=== PATIENT | female | born 1960 | race Caucasian/White ===

== ENCOUNTER 2024-05-26 23:12 | Inpatient (IN) | payer OTHER ==
[2024-05-26] MEDS ORDERED: FUROSEMIDE 20 MG/ 2ML VIAL ONE (23:45)
[2024-05-26] MEDS ORDERED: ONDANSETRON 4 MG/2 ML VIAL ONE (23:45)
[2024-05-26] MEDS ORDERED: NITROGLYCERIN 1 GM PKT TD ONE (23:45)
[2024-05-26] MEDS ORDERED: HYDRALAZINE HCL 20 MG/ML VIAL ONE (23:45)
[2024-05-26] MEDS ORDERED: MORPHINE 4 MG/ML SYR ONE (23:46)
[2024-05-26] MEDS ORDERED: FUROSEMIDE 40 MG/4 ML VIAL ONE (23:46)
[2024-05-27] LABS: Absolute Basophils 0.1 K/uL (0-0.5); Absolute Eosinophils 0.1 K/uL (0-0.5); Absolute Lymphocytes (CBC) 2.2 K/uL (0.7-4.9); Absolute Monocytes 0.5 K/uL (0.1-1.3); Absolute Neutrophil 4.4 K/uL (1.8-8.0); Basophils % 0.7 % (0-1.3); Eosinophils % 0.9 % (0-4.4); Hematocrit 43.3 % (36.0-45.0); Hemoglobin 14.2 g/dL (12.0-15.0); Lymphocytes % 29.8 % (15.3-44.8); MCH 31.4 pg (27.0-35.0); MCHC 32.8 g/dL (32.0-36.0); MPV 6.9 fL (7.6-11.3); Monocytes % 7.6 % (3.3-12.3); Platelets 341 thou/uL (152-406); RBC Red Blood Cell Count 4.51 M/uL (3.86-4.86); Red Cell Distribution Width 14.6 % (12.1-15.2)
[2024-05-27 00:02] LABS: D-Dimer 0.566 FEUug/mL (0-0.500); PT Prothrombin Time 11.6 SECONDS (9.4-12.5); PTT, Activated Partial Thromb 32.6 SECONDS (24.3-36.9); Protime INR 1.04
[2024-05-27 00:03] LABS: Blood Gas Oxyhemoglobin 90.8 % (94-97); Blood Gas THB 15.1 g/dl (12-18); Blood O2 Saturation 93.8 % (92-98.5)
[2024-05-27] MEDS ORDERED: ASPIRIN 81 MG CHEWABLE TABLET ONE (00:07)
[2024-05-27 00:11] LABS: ALT/SGPT 18 U/L (13-56); AST/SGOT 15 U/L (15-37); Albumin/Globulin Ratio 1.1 (1.1-1.8); Alkaline Phosphatase 62 U/L (45-117); Anion Gap 6.5 mEq/L (5.0-15.0); BUN Blood Urea Nitrogen 15 mg/dL (7-18); Bicarbonate 29 mEq/L (21-32); Bilirubin Total 0.3 mg/dL (0.2-1.0); Creatine Phosphokinase 90 U/L (26-192); Globulin 3.7 g/dL (2.3-3.5); Glomerular Filtration Rate 64 ml/min (=/>90); Glucose Level 167 mg/dL (74-106); Lipase 19 U/L (13-75); Magnesium 1.9 mg/dL (1.6-2.4); NT PRO-BNP 319 pg/mL (<125); Potassium 3.5 mEq/L (3.5-5.1); Protein, Total 7.7 g/dL (6.4-8.2); Sodium Level 139 mEq/L (136-145); Troponin High Sensitivity 6.7 pg/mL (<58.9)
[2024-05-27 00:13] LABS: Bilirubin Direct < 0.2 mg/dL (0-0.2); Bilirubin Indirect, Calculated 0.1 mg/dL (0.2-0.8)
[2024-05-27] MEDS ORDERED: DIAZEPAM 5 MG TABLET ONE (01:05)
[2024-05-27] MEDS ORDERED: ALBUTEROL 2.5 MG/3 ML NEB SOL ONE (02:59)
[2024-05-27] MEDS ORDERED: METHYLPREDNISOLONE 125 MG INJ ONE (02:59)
--- NOTE | 2024-05-27 02:59 | EDPHYS ---
Physician Documentation [facility] Name: Courtney Barajas Age: 64 yrs Sex: Female : 1960 Arrival Date: 05/26/2024 Time: 23:12 Bed 4 Private MD: ED Physician James Howe HPI: 05/26 23:18 This 64 yrs old Female presents to ER via Unassigned with complaints of sp4 dyspnea . 05/27 02:59 64 -year-old female with history of hypertension, COPD, anxiety and atrial fibrillation sp4 presents with acute onset of dyspnea and chest pressure. 02:59 Patient is visiting here from [facility], patient presents with EMS for acute sp4 dyspnea on high flow oxygen cannula.. Historical: - Allergies: 05/26 23:31 Ativan; al5 - PMHx: 23:22 Hypertensive disorder; Chronic obstructive lung disease; Anxiety; Atrial fibrillation; al5 - PSHx: 23:22 Cholecystectomy; tubal ligation; partial hysterectomy; al5 - Immunization history:: Adult Immunizations up to date. - Infectious Disease History:: Denies. - Social history:: Smoking status: Patient/guardian denies using tobacco, the patient reports quitting approximately 7 years ago. - Family history:: not pertinent. ROS: 05/27 02:59 Constitutional: Negative for fever, chills, and weight loss, Positive dyspnea. Positive sp4 chest pressure All other systems are negative, Exam: 02:59 Constitutional: This is a well developed, well nourished patient who is awake, alert, sp4 acutely dyspneic and on high flow oxygen cannula. Head/Face: Normocephalic, atraumatic. Eyes: Pupils equal round and reactive to light, extra-ocular motions intact. Lids and lashes normal. Conjunctiva and sclera are not injected. Cornea within normal limits. Periorbital areas with no swelling, redness, or edema. ENT: Nares patent. No nasal discharge, no septal abnormalities noted. Tympanic membranes are normal and external auditory canals are clear. Oropharynx with no redness, swelling, or masses, exudates, or evidence of obstruction, uvula midline. Mucous membranes moist. Neck: Trachea midline, no thyromegaly or masses palpated, and no cervical lymphadenopathy. Supple, full range of motion without nuchal rigidity, or vertebral point tenderness. Chest/axilla: Normal chest wall appearance and motion. Nontender with no deformity. No lesions are appreciated. Cardiovascular: Regular rate and rhythm with a normal S1 and S2. No gallops, murmurs, or rubs. Normal PMI, no JVD. No pulse deficits. Respiratory: Lungs have equal breath sounds bilaterally, Positive bilateral wheezing and dyspnea with tachypnea and mild retractions. Abdomen/GI: Soft, with normal bowel sounds. No distension or tympany. No guarding or rebound. No evidence of tenderness throughout. Back: No spinal tenderness. No costovertebral tenderness. Skin: Warm, dry with normal turgor. Normal color with no rashes, no lesions, and no evidence of cellulitis. MS/ Extremity: Pulses equal, no cyanosis. Neurovascular intact. Full, normal range of motion. Neuro: Awake and alert, GCS 15, oriented to person, place, time, and situation. Cranial nerves II-XII grossly intact. Motor strength 5/5 in all extremities. Sensory grossly intact. Psych: Awake, alert, with orientation to person, place and time. Behavior, mood, and affect are within normal limits 02:59 ECG was reviewed by the Attending Physician. Sinus tachycardia at 110 bpm, EKG at sp4 23:16 Vital Signs: 05/26 23:19 BP 207 / 138; Pulse 109; Resp 23; Temp 98.4; Pulse Ox 90% on 5 lpm NC; Weight 98.88 kg; al5 Height 5 ft. 9 in. ; 23:27 BP 204 / 125; Pulse 98; Resp 24; Pulse Ox 99% on 5 lpm NC; al5 23:30 BP 203 / 133; Pulse 100; Resp 26; Pulse Ox 100% on 5 lpm NC; al5 05/27 00:02 BP 118 / 82; Pulse 106; Resp 19; Pulse Ox 97% on 5 lpm NC; al5 00:19 BP 143 / 106; Pulse 133; Resp 24; Pulse Ox 90% on 5 lpm NC; al5 00:30 BP 159 / 138; Pulse 121; Resp 22; Pulse Ox 94% on 5 lpm NC; al5 01:00 BP 132 / 89; Pulse 108; Resp 18; Pulse Ox 93% on 4 lpm NC; al5 03:00 BP 122 / 43; Pulse 108; Resp 16; Pulse Ox 96% on 4 lpm NC; al5 04:50 BP 139 / 57; Pulse 96; Resp 16; Pulse Ox 96% on 4 lpm NC; al5 05/26 23:19 Body Mass Index 32.19 (98.88 kg, 175.26 cm) al5 Jagdeep Coma Score: 02:59 Eye Response: spontaneous(4). Motor Response: obeys commands(6). Verbal Response: sp4 oriented(5). Total: 15. MDM: 05/26 23:19 Medical Screening Exam initiated sp4 05/27 00:53 ED course: EXAM: XR Chest, 1 View CLINICAL HISTORY: The patient is 64 years old and is sp4 Female; CHEST PAIN TECHNIQUE: Frontal view of the chest. COMPARISON: No relevant prior studies available. FINDINGS: LUNGS: Unremarkable. No consolidation. PLEURAL SPACE: Unremarkable. No pneumothorax. HEART: Unremarkable. No cardiomegaly. MEDIASTINUM: Unremarkable. Normal mediastinal contour. BONES/JOINTS: Several healed left-sided rib fractures are present. UPPER ABDOMEN: Unremarkable as visualized. IMPRESSION: No acute cardiopulmonary process. . 02:56 ED course: EXAM: CTAngiography Chest With Intravenous Contrast CLINICAL HISTORY: The sp4 patient is 64 years old and is Female; CHEST PAIN TECHNIQUE: Axial computed tomographic angiography images of the chest with intravenous contrast. Sagittal and coronal reformatted images were created and reviewed. This CT exam was performed using one or more of the following dose reduction techniques: automated exposure control, adjustment of the mA and/or kV according to patient size, and/or use of iterative reconstruction technique. MIP reconstructed images were created and reviewed. COMPARISON: No relevant prior studies available. FINDINGS: PULMONARYARTERIES: There are no obvious filling defects identified within the pulmonary arteries to suggest pulmonary embolism. AORTA: No acute findings. No thoracic aortic aneurysm. LUNGS: The lungs are hyperinflated with extensive emphysematous changes. There is no lobar consolidation. Flattening of hemidiaphragms is noted. Spiculated nodule within the right lower lobe measuring approximately 1.1 cm is present. PLEURAL SPACE: Unremarkable. No significant effusion. No pneumothorax. HEART: Trace pericardial effusion is present. No cardiomegaly. No evidence of RV dysfunction. BONES/JOINTS: Vertebral plana at T6 and T7 is noted. The vertebral body heights and alignment are otherwise maintained. No acute fracture. SOFT TISSUES: Unremarkable. LYMPH NODES: Unremarkable. No enlarged lymph nodes. GALLBLADDER AND BILE DUCTS: Surgical clips are present in the right upper quadrant, consistent with previous cholecystectomy. PANCREAS: Fatty infiltration of pancreas is noted. IMPRESSION: 1. No evidence of pulmonary embolism. 2. Right lower lobe spiculated nodule. For low-risk or high-risk patients consider a follow-up chest CT at 3 months. If unchanged consider an additional follow-up CT at 18-24 months. Alternatively (or additionally) PET/CT or tissue sampling could be performed. 3. Severe emphysematous changes. . 03:09 Differential diagnosis: Anemia Anxiety Reaction asthma, Bronchitis CHF exacerbation, sp4 Chronic Obstructive Pulmonary Disease Unstable Angina. Data reviewed: vital signs, lab test result(s), EKG, radiologic studies, CT scan, ultrasound. Consideration of Admission/Observation Patient was admitted/placed on observation. Escalation of care including admission/observation considered. Management of patient was discussed with the following: Hospitalist: Admission Service . ED course: EXAM: XR Chest, 1 View CLINICAL HISTORY: The patient is 64 years old and is Female; CHEST PAIN TECHNIQUE: Frontal view of the chest. COMPARISON: No relevant prior studies available. FINDINGS: LUNGS: Unremarkable. No consolidation. PLEURAL SPACE: Unremarkable. No pneumothorax. HEART: Unremarkable. No cardiomegaly. MEDIASTINUM: Unremarkable. Normal mediastinal contour. BONES/JOINTS: Several healed left-sided rib fractures are present. UPPER ABDOMEN: Unremarkable as visualized. IMPRESSION: No acute cardiopulmonary process. . 05/26 23:19 Order name: BMP; Complete Time: 00:51 [facility] 05/26 23:19 Order name: Blood Culture Adult (2) [facility] 05/26 23:19 Order name: CBC with Diff; Complete Time: 00:51 4 05/26 23:19 Order name: CPK; Complete Time: 00:51 4 05/26 23:19 Order name: D-Dimer; Complete Time: 00:51 4 05/26 23:19 Order name: Hepatic Function; Complete Time: 00:51 4 05/26 23:19 Order name: Lipase; Complete Time: 00:51 4 05/26 23:19 Order name: Magnesium; Complete Time: 00:51 4 05/26 23:19 Order name: NT PRO-BNP; Complete Time: 00:51 [facility] 05/26 23:19 Order name: PT-INR; Complete Time: 00:51 4 05/26 23:19 Order name: Ptt, Activated; Complete Time: 00:51 4 05/26 23:19 Order name: Troponin HS; Complete Time: 00:51 [facility] 05/26 23:27 Order name: ABG; Complete Time: 00:51 4 05/26 23:28 Order name: Lactate w/ 2H reflex if indic.; Complete Time: 00:51 [facility] 05/26 23:28 Order name: CRP; Complete Time: 00:51 [facility] 05/27 03:52 Order name: Lactate w/ 2H reflex if indic. [facility] 05/27 03:52 Order name: Magnesium [facility] 05/27 03:52 Order name: NT PRO-BNP [facility] 05/27 03:52 Order name: Phosphorus [facility] 05/27 03:52 Order name: Thyroid Stimulating Hormone [facility] 05/27 03:52 Order name: Urinalysis w/ reflexes [facility] 05/27 03:52 Order name: Lipid Profile [facility] 05/27 03:52 Order name: Lipid Profile [facility] 05/27 03:52 Order name: Troponin High Sensitivity [facility] 05/27 03:52 Order name: Troponin High Sensitivity [facility] 05/27 03:52 Order name: Troponin High Sensitivity [facility] 05/27 03:52 Order name: Troponin High Sensitivity [facility] 05/26 23:19 Order name: XRAY CXR (1 view) [facility] 05/27 00:59 Order name: CT Chest For PE Angio [facility] 05/27 03:44 Order name: Extremity Nonvascular Complete [facility] 05/27 03:44 Order name: Echo with Doppler [facility] 05/27 03:45 Order name: Respiratory Therapy Consult [facility] 05/27 03:52 Order name: CONS Physician Consult [facility] 05/27 03:52 Order name: CONS Physician Consult [facility] 05/26 23:19 Order name: Cardiac monitoring; Complete Time: 23:21 [facility] 05/26 23:19 Order name: EKG - Nurse/Tech; Complete Time: 23:21 [facility] 05/26 23:19 Order name: IV Saline Lock; Complete Time: 23:26 [facility] 05/26 23:19 Order name: Labs collected and sent; Complete Time: 23:26 [facility] 05/26 23:19 Order name: O2 Per Protocol; Complete Time: 23:26 [facility] 05/26 23:19 Order name: O2 Sat Monitoring; Complete Time: 23:26 sp4 EC:59 Rate is 110 beats/min. Rhythm is regular, Sinus tachycardia. QRS [place] is Normal. PA sp4 interval is normal. QRS interval is normal. QT interval is normal. No Q waves. T waves are Normal. No ST changes noted. Clinical impression: No evidence of ischemia. Interpreted by me. Reviewed by me. Administered Medications: 00:05 Drug: hydrALAZINE IVP 20 mg IVP once Route: IVP; Site: left antecubital; al5 02:02 Follow up: Response: No adverse reaction; Blood pressure is lowered al5 00:05 Drug: morphine IVP or IV 4 mg IVP once over 4 mins Route: IVP; Infused Over: 4 mins; al5 Site: left antecubital; 02:01 Follow up: Response: No adverse reaction; Pain is unchanged, physician notified al5 00:05 Drug: Furosemide IVP 60 mg IVP once; give over 2 minutes Route: IVP; Site: left al5 antecubital; 02:02 Follow up: Response: No adverse reaction al5 00:05 Drug: Nitroglycerin Transdermal Ointment 2 % 0.5 inches Transdermal once Route: al5 Transdermal; Site: anterior chest wall; 02:02 Follow up: Response: No adverse reaction al5 00:05 Drug: Ondansetron IVP 8 mg IVP once; over 2 minutes Route: IVP; Site: left antecubital; al5 01:07 Follow up: Response: No adverse reaction mt4 02:02 Follow up: Response: No adverse reaction; Nausea is decreased al5 00:13 Not Given (Patient Refused): aspirinchewable tablet 324 mg PO once; 81 mg tablets x 4 al5 01:07 Drug: Diazepam PO 5 mg PO once Route: PO; mt4 03:09 Follow up: Response: No adverse reaction; Anxiety decreased al5 03:09 Drug: Albuterol Inhalation 2.5 mg Inhalation once Route: Inhalation; al5 03:39 Follow up: Response: No adverse reaction; Marked relief of symptoms al5 03:09 Drug: MethylPrednisoLONE IVP 125 mg IVP once Route: IVP; Site: left antecubital; al5 03:39 Follow up: Response: No adverse reaction; Marked relief of symptoms al5 Disposition Summary: 05/27/24 02:59 Hospitalization Ordered Notes: Hospitalization Status: Inpatient Admission sp4 Provider: Khushboo Jerome Location: Telemetry/MedSurg (Inpatient) sp4 Condition: Stable sp4 Problem: new sp4 Symptoms: have improved sp4 Bed/Room Type: Standard sp4 Room Assignment: 223(05/27/24 04:02) [facility] Diagnosis - COPD/ Chronic obstructive pulmonary disease with (acute) exacerbation sp4 - Acute diastolic (congestive) heart failure sp4 - Dyspnea, unspecified sp4 - Hypertensive crisis sp4 Forms: - Medication Reconciliation Form sp4 - SBAR form sp4 - Leadership Thank You Letter sp4 Signatures: Dispatcher [employer] EDMS James Howe MD MD sp4 Meena Grayson [facility] Linda Lerma RN RN mt4 Enid Mcghee RN RN al5 Corrections: (The following items were deleted from the chart) 05/26 23:20 23:20 BASIC METABOLIC PANEL+C.LAB.BRZ ordered. EDMS EDMS 23:20 23:20 BLOOD CULTURE*+BA.LAB.BRZ ordered. EDMS EDMS 23:20 23:20 CBC+H.LAB.BRZ ordered. EDMS EDMS 23:20 23:20 CREATINE PHOSPHOKINASE+C.LAB.BRZ ordered. EDMS EDMS 23:20 23:20 D-DIMER+COAG.LAB.BRZ ordered. EDMS EDMS 23:20 23:20 HEPATIC FUNCTION+C.LAB.BRZ ordered. EDMS EDMS 23:20 23:20 LIPASE+C.LAB.BRZ ordered. EDMS EDMS 23:20 23:20 MAGNESIUM+C.LAB.BRZ ordered. EDMS EDMS 23:20 23:20 PROBNP+C.LAB.BRZ ordered. EDMS EDMS 23:20 23:20 PROTIME (+INR)+COAG.LAB.BRZ ordered. EDMS EDMS 23:20 23:20 PTT, ACTIVATED+COAG.LAB.BRZ ordered. EDMS EDMS 23:20 23:20 Troponin High Sensitivity+C.LAB.BRZ ordered. EDMS EDMS 23:20 23:20 Chest Single View+RAD.RAD.BRZ ordered. EDMS EDMS 23:31 23:22 Allergies: No Known Allergies; al5 al5 05/27 04:02 02:59 sp4 kmf
--- NOTE | 2024-05-27 02:59 | ER ---
Nurse's Notes [facility] Name: Courtney Barajas Age: 64 yrs Sex: Female : 1960 Arrival Date: 05/26/2024 Time: 23:12 Bed 4 Private MD: Diagnosis: COPD/ Chronic obstructive pulmonary disease with (acute) exacerbation;Acute diastolic (congestive) heart failure;Dyspnea, unspecified;Hypertensive crisis Presentation: 05/26 23:19 Chief complaint: Patient states: c/o shortness of breath that has gotten worse today, al5 hx of COPD. Coronavirus screen: shortness of breath. Ebola Screen: No symptoms or risks identified at this time. Initial Sepsis Screen: Does the patient meet any 2 criteria? RR > 20 per min. HR > 90 bpm. Yes Does the patient have a suspected source of infection? No. Patient's initial sepsis screen is negative. Risk Assessment: Do you want to hurt yourself or someone else? Patient reports no desire to harm self or others. Onset of symptoms was May 26, 2024. 23:19 Method Of Arrival: EMS: [facility] al5 23:19 Acuity: JOSI 3 al5 Triage Assessment: 23:24 General: Appears in no apparent distress. uncomfortable, Behavior is calm, cooperative. al5 Pain: Complains of pain in head. EENT: No signs and/or symptoms were reported regarding the EENT system. Neuro: Level of Consciousness is awake, alert, obeys commands, Oriented to person, place, time, situation. Cardiovascular: Capillary refill < 3 seconds skin cool and dry. Respiratory: Reports shortness of breath Airway is patent Respiratory effort is even, labored, Respiratory pattern is regular, symmetrical, Onset: The symptoms/episode began/occurred ongoing issue due to COPD but got worse today, the patient has moderate shortness of breath. GI: Abdomen is round non-distended. : No signs and/or symptoms were reported regarding the genitourinary system. Derm: Skin is intact, Skin is pink, warm \T\ dry. normal. Musculoskeletal: No signs and/or symptoms reported regarding the musculoskeletal system. Historical: - Allergies: 23:31 Ativan; al5 - PMHx: 23:22 Hypertensive disorder; Chronic obstructive lung disease; Anxiety; Atrial fibrillation; al5 - PSHx: 23:22 Cholecystectomy; tubal ligation; partial hysterectomy; al5 - Immunization history:: Adult Immunizations up to date. - Infectious Disease History:: Denies. - Social history:: Smoking status: Patient/guardian denies using tobacco, the patient reports quitting approximately 7 years ago. - Family history:: not pertinent. Screenin:29 [facility] ED Fall Risk Assessment (Adult) History of falling in the last 3 months, al5 including since admission No falls in past 3 months (0 pts) Confusion or Disorientation No (0 pts) Intoxicated or Sedated No (0 pts) Impaired Gait No (0 pts) Mobility Assist Device Used No (0 pt) Altered Elimination No (0 pt) Score/Fall Risk Level 0 - 2 = Low Risk Oriented to surroundings, Maintained a safe environment, Hourly rounding (assess needs \T\ fall precautionary measures) done. Abuse screen: Denies threats or abuse. Denies injuries from another. Nutritional screening: No deficits noted. Tuberculosis screening: No symptoms or risk factors identified. Assessment: 23:29 Reassessment: see triage assessment. Cardiovascular: Rhythm is sinus tachycardia. al5 Respiratory: Airway is patent Respiratory effort is even, labored, Respiratory pattern is regular, symmetrical. 05/27 00:52 Reassessment: No changes from previously documented assessment. Patient and/or family al5 updated on plan of care and expected duration. Pain level reassessed. Patient is alert, oriented x 3, equal unlabored respirations, skin warm/dry/pink. 02:20 Reassessment: Patient appears in no apparent distress at this time. No changes from al5 previously documented assessment. Patient and/or family updated on plan of care and expected duration. Pain level reassessed. Patient is alert, oriented x 3, equal unlabored respirations, skin warm/dry/pink. 03:38 Reassessment: Patient appears in no apparent distress at this time. No changes from al5 previously documented assessment. Patient and/or family updated on plan of care and expected duration. Pain level reassessed. Patient is alert, oriented x 3, equal unlabored respirations, skin warm/dry/pink. Respiratory: Breath sounds are clear bilaterally. 04:50 Reassessment: Patient appears in no apparent distress at this time. No changes from al5 previously documented assessment. Patient and/or family updated on plan of care and expected duration. Pain level reassessed. Patient is alert, oriented x 3, equal unlabored respirations, skin warm/dry/pink. Vital Signs: 05/26 23:19 BP 207 / 138; Pulse 109; Resp 23; Temp 98.4; Pulse Ox 90% on 5 lpm NC; Weight 98.88 kg; al5 Height 5 ft. 9 in. ; 23:27 BP 204 / 125; Pulse 98; Resp 24; Pulse Ox 99% on 5 lpm NC; al5 23:30 BP 203 / 133; Pulse 100; Resp 26; Pulse Ox 100% on 5 lpm NC; al5 05/27 00:02 BP 118 / 82; Pulse 106; Resp 19; Pulse Ox 97% on 5 lpm NC; al5 00:19 BP 143 / 106; Pulse 133; Resp 24; Pulse Ox 90% on 5 lpm NC; al5 00:30 BP 159 / 138; Pulse 121; Resp 22; Pulse Ox 94% on 5 lpm NC; al5 01:00 BP 132 / 89; Pulse 108; Resp 18; Pulse Ox 93% on 4 lpm NC; al5 03:00 BP 122 / 43; Pulse 108; Resp 16; Pulse Ox 96% on 4 lpm NC; al5 04:50 BP 139 / 57; Pulse 96; Resp 16; Pulse Ox 96% on 4 lpm NC; al5 05/26 23:19 Body Mass Index 32.19 (98.88 kg, 175.26 cm) al5 Jagdeep Coma Score: 02:59 Eye Response: spontaneous(4). Motor Response: obeys commands(6). Verbal Response: sp4 oriented(5). Total: 15. ED Course: 05/26 23:17 Patient arrived in ED. al5 23:18 James Howe MD is Attending Physician. sp4 23:18 Enid Mcghee RN is Primary Nurse. al5 23:21 EKG done, by senior technical project manager. af3 23:22 Triage completed. al5 23:26 BMP Sent. ha1 23:26 Blood Culture Adult (2) Sent. ha1 23:26 CBC with Diff Sent. ha1 23:26 CPK Sent. ha1 23:26 D-Dimer Sent. ha1 23:26 Hepatic Function Sent. ha1 23:26 Lipase Sent. ha1 23:26 Magnesium Sent. ha1 23:26 NT PRO-BNP Sent. ha1 23:26 PT-INR Sent. ha1 23:26 Ptt, Activated Sent. ha1 23:26 Inserted saline lock: 20 gauge in left antecubital area, using aseptic technique. Blood ha1 collected. Flushed with 10 mL NS. 23:27 Troponin HS Sent. ha1 23:28 Arm band placed on right wrist. Patient placed in the treatment room, on a stretcher. al5 23:30 No provider procedures requiring assistance completed. al5 23:30 Patient has correct armband on for positive identification. Bed in low position. Call al5 light in reach. Side rails up X2. Provided Education on: plan of care. 05/27 00:11 XRAY CXR (1 view) In Process Unspecified. EDMS 02:04 CT Chest For PE Angio In Process Unspecified. EDMS 02:57 Khushboo Jerome MD is Hospitalizing Provider. sp4 03:38 Patient admitted, IV remains in place. al5 Administered Medications: 00:05 Drug: hydrALAZINE IVP 20 mg IVP once Route: IVP; Site: left antecubital; al5 02:02 Follow up: Response: No adverse reaction; Blood pressure is lowered al5 00:05 Drug: morphine IVP or IV 4 mg IVP once over 4 mins Route: IVP; Infused Over: 4 mins; al5 Site: left antecubital; 02:01 Follow up: Response: No adverse reaction; Pain is unchanged, physician notified al5 00:05 Drug: Furosemide IVP 60 mg IVP once; give over 2 minutes Route: IVP; Site: left al5 antecubital; 02:02 Follow up: Response: No adverse reaction al5 00:05 Drug: Nitroglycerin Transdermal Ointment 2 % 0.5 inches Transdermal once Route: al5 Transdermal; Site: anterior chest wall; 02:02 Follow up: Response: No adverse reaction al5 00:05 Drug: Ondansetron IVP 8 mg IVP once; over 2 minutes Route: IVP; Site: left antecubital; al5 01:07 Follow up: Response: No adverse reaction mt4 02:02 Follow up: Response: No adverse reaction; Nausea is decreased al5 00:13 Not Given (Patient Refused): aspirinchewable tablet 324 mg PO once; 81 mg tablets x 4 al5 01:07 Drug: Diazepam PO 5 mg PO once Route: PO; mt4 03:09 Follow up: Response: No adverse reaction; Anxiety decreased al5 03:09 Drug: Albuterol Inhalation 2.5 mg Inhalation once Route: Inhalation; al5 03:39 Follow up: Response: No adverse reaction; Marked relief of symptoms al5 03:09 Drug: MethylPrednisoLONE IVP 125 mg IVP once Route: IVP; Site: left antecubital; al5 03:39 Follow up: Response: No adverse reaction; Marked relief of symptoms al5 Medication: 05/26 23:30 VIS not applicable for this client. al5 Outcome: 05/27 02:59 Decision to Hospitalize by Provider. sp4 04:49 Admitted to Med/surg accompanied by tech, via wheelchair, room 223, with oxygen, with al5 chart, 04:49 Condition: good 04:49 Instructed on the need for admit, 04:51 Patient left the ED. al5 Signatures: Dispatcher [employer] EDMS Angelica Arceo RN RN ha1 James Howe MD MD sp4 Linda Lerma RN RN mt4 Enid Mcghee RN RN al5 Valentina Torres3 Corrections: (The following items were deleted from the chart) 05/26 23:29 23:24 Cardiovascular: Capillary refill < 3 seconds skin cool and dry. al5 al5 23:29 23:24 Pain: Denies pain. al5 al5 23:31 23:22 Allergies: No Known Allergies; al5 al5
--- NOTE | 2024-05-27 02:59 | RAD REPORT ---
EXAM: XR Chest, 1 View CLINICAL HISTORY: The patient is 64 years old and is Female; CHEST PAIN TECHNIQUE: Frontal view of the chest. COMPARISON: No relevant prior studies available. FINDINGS: LUNGS: Unremarkable. No consolidation. PLEURAL SPACE: Unremarkable. No pneumothorax. HEART: Unremarkable. No cardiomegaly. MEDIASTINUM: Unremarkable. Normal mediastinal contour. BONES/JOINTS: Several healed left-sided rib fractures are present. UPPER ABDOMEN: Unremarkable as visualized. IMPRESSION: No acute cardiopulmonary process. Electronically signed by: Pratibha Balbuena MD 05/27/2024 12:20 AM [facility] Due to temporary technical issues with the PACS/Zenput reporting system, reports are being timi d by the in-house radiologist without review as a courtesy to ensure prompt reporting the interpreting radiologist is fully responsible for the content of the report. Transcribed Date/Time: 05/27/2024 2:58 AM
--- NOTE | 2024-05-27 03:00 | RAD REPORT ---
EXAM: CT Angiography Chest With Intravenous Contrast CLINICAL HISTORY: The patient is 64 years old and is Female; CHEST PAIN TECHNIQUE: Axial computed tomographic angiography images of the chest with intravenous contrast. Sagittal an d coronal reformatted images were created and reviewed. This CT exam was performed using one or more of the following dose reduction techniques: automated exposure control, adjustment of the mA a nd/or kV according to patient size, and/or use of iterative reconstruction technique. MIP reconstructed images were created and reviewed. COMPARISON: No relevant prior studies available. FINDINGS: PULMONARY ARTERIES: There are no obvious filling defects identified within the pulmonary arteries to suggest pulmonary embolism. AORTA: No acute findings. No thoracic aortic aneurysm. LUNGS: The lungs are hyperinflated with extensive emphysematous changes. There is no lobar consol idation. Flattening of hemidiaphragms is noted. Spiculated nodule within the right lower lobe measuring approximately 1.1 cm is present. PLEURAL SPACE: Unremarkable. No significant effusion. No pneumothorax. HEART: Trace pericardial effusion is present. No cardiomegaly. No evidence of RV dysfunction. BONES/JOINTS: Vertebral plana at T6 and T7 is noted. The vertebral body heights and alignment are otherwise maintained. No acute fracture. SOFT TISSUES: Unremarkable. LYMPH NODES: Unremarkable. No enlarged lymph nodes. GALLBLADDER AND BILE DUCTS: Surgical clips are present in the right upper quadrant, consistent wi th previous cholecystectomy. PANCREAS: Fatty infiltration of pancreas is noted. IMPRESSION: 1. No evidence of pulmonary embolism. 2. Right lower lobe spiculated nodule. For low-risk or high-risk patients consider a follow-up ch est CT at 3 months. If unchanged consider an additional follow-up CT at 18-24 months. Alternatively (or additionally) PET/CT or tissue sampling could be performed. 3. Severe emphysematous changes. Electronically signed by: Pratibha Balbuena MD 05/27/2024 02:23 AM [facility]) Due to temporary technical issues with the PACS/[employer] reporting system, reports are being timi d by the in-house radiologist without review as a courtesy to ensure prompt reporting the interpreting radiologist is fully responsible for the content of the report. Transcribed Date/Time: 05/27/2024 3:00 AM
[2024-05-27] MEDS ORDERED: ALBUTEROL 2.5 MG/3 ML NEB SOL NEB PRN (03:45)
[2024-05-27] MEDS ORDERED: ACETAMINOPHEN 325 MG TABLET PO PRN (03:45)
[2024-05-27] MEDS ORDERED: ONDANSETRON 4 MG (ODT) TAB PO PRN (03:45)
--- NOTE | 2024-05-27 03:57 | P.HP ---
Certification for Inpatient With expected LOS: <2 Midnights Practitioner: I am a practitioner with admitting privileges, knowledge of patient current condition, hospital course, and medical plan of care. Services: Services provided to patient in accordance with Admission requirements found in Title 42 Section 412.3 of the Code of Federal Regulations Patient History Date of Service: 05/27/24 Reason for admission: COPD exacerbation, dyspnea History of Present Illness: 64-year-old woman with a past medical history significant for COPD (not on home oxygen), CHF, HTN, HDL, and atrial fibrillation presented to the emergency room complaining of dyspnea x 2 days. Patient states that she currently resides in [facility], but has traveled to this area to pear picker her son tomorrow. She states she noticed bilateral lower extremity edema yesterday that has slightly worsened today. Also, the patient states she has been becoming more short of breath lately. The patient is a former smoker-quit about 7 years ago. She states she has never had a COPD or CHF exacerbation. Patient has not attempted anything to improve her symptoms and states nothing worsens. She denies fever. - Past Medical/Surgical History Diabetic: No -: COPD-not on home oxygen -: CHF -: HTN -: HDL -: A. Fib not on anticoagulation -: cholecystectomy -: tubal ligation -: partial hysterectomy - Family History Family History: Reviewed- Non-Contributory - Social History Smoking Status: Former smoker (quit 7 years ago) Alcohol use: No Review of Systems Respiratory: Shortness of Breath, SOB with Excertion Gastrointestinal: Abdominal Pain (b/l upper quadrants) Physical Examination - Vital Signs Temperature: 98.4 F Blood Pressure: 122/43 Pulse: 112 Respirations: 18 Pulse Ox (%): 92 (on nasal cannula) - Physical Exam General: Alert, Oriented x3 HEENT: Atraumatic, Normocephalic Neck: JVD not distended Respiratory: Crackles/rales Cardiovascular: No gallops, No rubs, No murmurs, Edema Gastrointestinal: Non-distended, Tenderness (b/l upper abd quadrants) Musculoskeletal: No erythema, No warmth, Swelling (b/l lower extremities) Neurological: Normal strength at 5/5 x4 extr, Sensation intact Urinary: Other (adult diaper) - Studies Laboratory Data (last 24 hrs) 05/26/24 05/26/24 05/26/24 23:30 23:30 23:30 WBC 7.20 Hgb 14.2 Hct 43.3 Plt Count 341 PT 11.6 INR 1.04 APTT 32.6 Sodium 139 Potassium 3.5 BUN 15 Creatinine 1.00 Glucose 167 H Magnesium 1.9 Total Bilirubin 0.3 AST 15 ALT 18 Alkaline Phosphatase 62 Lipase 19 Assessment and Plan - Problems (Diagnosis) (1) COPD exacerbation Current Visit: Yes Status: Acute (2) Dyspnea Current Visit: Yes Status: Acute Qualifiers: Dyspnea type: shortness of breath Qualified Code(s): R06.02 - Shortness of breath; R06.00 - Dyspnea, unspecified; R06.01 - Orthopnea (3) Atrial fibrillation Current Visit: Yes Status: Acute Qualifiers: Atrial fibrillation type: unspecified chronic Qualified Code(s): I48.20 - Chronic atrial fibrillation, unspecified; I48.2 - Chronic atrial fibrillation (4) Hypertension Current Visit: Yes Status: Acute Qualifiers: Hypertension type: unspecified Qualified Code(s): I10 - Essential (primary) hypertension (5) Dyslipidemia (high LDL; low HDL) Current Visit: Yes Status: Acute (6) CHF (congestive heart failure) Current Visit: Yes Status: Acute Qualifiers: Heart failure chronicity: unspecified - Plan COPD exacerbation: Admit to floor IV lasix BID (received IV lasix, IV solu medrol in ED) blood cx collected pulmonary consulted CXR: no abnormality Chest CT: No pulmonary embolism, no lobar consolidation, severe emphysematous changes US b/l lower extremities pending to rule out DVT Elevated D-dimer Atrial Fibrillation: Telemetry ordered echocardiogram ordered cardiology consulted Received nitroglycerin patch, and ASA in ED BNP, trop, and other lab work ordered to trend HTN: resume home medication Received IV hydralyzine in ED HDL: lipid profile ordered resume home medication - Advance Directives Does patient have a Living Will: No Does patient have a Durable POA for Healthcare: No
--- NOTE | 2024-05-27 05:28 | RAD REPORT ---
EXAM: US Duplex Bilateral Lower Extremities Veins CLINICAL HISTORY: The patient is 64 years old and is Female; rule out dvt TECHNIQUE: Real-time duplex ultrasound scan of the bilateral lower extremity veins integrating B-mo de two-dimensional vascular structure, Doppler spectral analysis, color flow Doppler imaging and Impression. COMPARISON: No relevant prior studies available. FINDINGS: Right deep veins: Unremarkable. No DVT in the visualized common femoral, femoral, or popliteal veins. The veins demonstrate normal color flow, are normally compressible where visualized, with normal phasic flow and/or augmentation response. Left deep veins: Unremarkable. No DVT in the visualized common femoral, femoral, or popliteal v eins. The veins demonstrate normal color flow, are normally compressible where visualized, with normal phasic flow and/or augmentation response. Soft tissues: No acute findings. IMPRESSION: No evidence of DVT in the bilateral lower extremity veins. Electronically signed by: Kaushal Castellon MD 05/27/2024 05:23 AM [facility] 8 Due to temporary technical issues with the PACS/[employer] scribe reporting system, reports are being signed by the in-house radiologist without review as a courtesy to ensure prompt reporting the interpreting radiologist is fully responsible for the content of the report. Transcribed Date/Time: 05/27/2024 5:28 AM
[2024-05-27] MEDS: METOPROLOL TAR 25 MG TAB PO SCH (05:36)
[2024-05-27 05:46] VITALS: BMI 31.2
[2024-05-27 06:18] LABS: Phosphorus 3.1 mg/dL (2.5-4.9); Thyroid Stimulating Hormone 2.79 uIU/mL (0.358-3.740)
[2024-05-27] MEDS: IPRATROPIUM BROM 0.5MG/2.5ML NEB SCH (07:44)
[2024-05-27] MEDS: MAGNES/ALUMIN/SIMET 30ML UCUP PO PRN (09:55)
[2024-05-27] MEDS: FUROSEMIDE 40 MG/4 ML VIAL IV SCH (09:57)
[2024-05-27] MEDS: ATORVASTATIN 40 MG TAB PO SCH (09:57)
[2024-05-27] MEDS: POTASSIUM CL SA 10 MEQ TAB PO ONE (09:57)
[2024-05-27] MEDS: ENOXAPARIN 40 MG/0.4 ML SQ SCH (09:58)
--- NOTE | 2024-05-27 11:30 | P.CNS ---
Date of Consult: 05/27/24 Chief Complaint: COPD exacerbation, dyspnea History of Present Illness: Patient with PMH of HTN, Emphysema presented with worsening SOB, denies any other cardiac symptoms. Allergies lorazepam [From Ativan] Allergy (Unknown, Verified 05/27/24 03:55) Anaphylaxis Home medications list reviewed: Yes Home Medications: Acetaminophen with Codeine [Acetaminophen-Cod #4 Tablet] 1 tab PO BID 05/27/24 Budesonide/Glycopyr/Formoterol [Breztri Aerosphere Inhaler] 1 puff IH DAILY PRN 05/27/24 Buspirone HCl [Buspar*] 5 mg PO DAILY 05/27/24 Losartan Potassium 1 tab PO BID 05/27/24 Metoprolol Succinate 1 tab PO DAILY 05/27/24 Omeprazole [Prilosec] 1 cap PO DAILY 05/27/24 Pravastatin Sodium 1 tab PO DAILY 05/27/24 hydrOXYzine HCL [Atarax*] 1 tab PO DAILY 05/27/24 - Past Medical/Surgical History Diabetic: No -: COPD-not on home oxygen -: CHF -: HTN -: HDL -: A. Fib not on anticoagulation -: cholecystectomy -: tubal ligation -: partial hysterectomy - Social History Alcohol use: No Place of Residence: Home Review of Systems 10-point ROS is otherwise unremarkable Physical Examination Temp Pulse Resp BP Pulse Ox 97.9 F 78 15 124/72 95 05/27/24 08:00 05/27/24 09:57 05/27/24 08:00 05/27/24 09:57 05/27/24 08:00 General: Alert, In no apparent distress HEENT: Atraumatic, PERRLA, Mucous membr. moist/pink, EOMI, Sclerae nonicteric Neck: Supple, 2+ carotid pulse no bruit, No LAD, Without JVD or thyroid abnormality Respiratory: Diminished, Dull Cardiovascular: Regular rate/rhythm, Normal S1 S2 Gastrointestinal: Normal bowel sounds, No tenderness Musculoskeletal: No tenderness Integumentary: No rashes Neurological: Normal gait, Normal speech, Normal tone, Normal affect Lymphatics: No axilla or inguinal lymphadenopathy Laboratory Data (last 24 hrs) 05/26/24 05/26/24 05/26/24 23:30 23:30 23:30 WBC 7.20 Hgb 14.2 Hct 43.3 Plt Count 341 PT 11.6 INR 1.04 APTT 32.6 Sodium 139 Potassium 3.5 BUN 15 Creatinine 1.00 Glucose 167 H Magnesium 1.9 Total Bilirubin 0.3 AST 15 ALT 18 Alkaline Phosphatase 62 Lipase 19 - Problems (1) Atrial fibrillation Current Visit: Yes Status: Acute Plan: continue lopressor 25 mg po bid continue ASA 81 mg darío;y Qualifiers: Atrial fibrillation type: unspecified chronic Qualified Code(s): I48.20 - Chronic atrial fibrillation, unspecified; I48.2 - Chronic atrial fibrillation (2) CHF (congestive heart failure) Current Visit: Yes Status: Acute Plan: patient SOB is most likely secondary to her COPD exacerbation, no signs of volume overload it is ok to continue Lasix 40 mg IV BID while she is inpatient continue lopressor and losartan. Echo Qualifiers: Heart failure chronicity: unspecified (3) Hypertension Current Visit: Yes Status: Acute Plan: continue medications as above. Qualifiers: Hypertension type: unspecified Qualified Code(s): I10 - Essential (primary) hypertension
--- NOTE | 2024-05-27 12:16 | P.CNS ---
Date of Consult: 05/27/24 Reason for Consult: Right lower lobe SPN Chief Complaint: COPD exacerbation, dyspnea History of Present Illness: Is 64 years of age admitted to the hospital started complaining of generalized body swelling tachycardia course last night here in the hospital[place] has her doctors over there she does take Breztri and oxygen at home and does work already pulmonary nodule was discovered in the right lower lobe very suspicious for lung cancer smoking 7 years ago Allergies lorazepam [From Ativan] Allergy (Unknown, Verified 05/27/24 03:55) Anaphylaxis Home Medications: Acetaminophen with Codeine [Acetaminophen-Cod #4 Tablet] 1 tab PO BID 05/27/24 Budesonide/Glycopyr/Formoterol [Breztri Aerosphere Inhaler] 1 puff IH DAILY PRN 05/27/24 Buspirone HCl [Buspar*] 5 mg PO DAILY 05/27/24 Losartan Potassium 1 tab PO BID 05/27/24 Metoprolol Succinate 1 tab PO DAILY 05/27/24 Omeprazole [Prilosec] 1 cap PO DAILY 05/27/24 Pravastatin Sodium 1 tab PO DAILY 05/27/24 hydrOXYzine HCL [Atarax*] 1 tab PO DAILY 05/27/24 - Past Medical/Surgical History Diabetic: No -: COPD-not on home oxygen -: CHF -: HTN -: HDL -: A. Fib not on anticoagulation -: cholecystectomy -: tubal ligation -: partial hysterectomy - Social History Smoking Status: Former smoker Alcohol use: No Place of Residence: Home Review of Systems 10-point ROS is otherwise unremarkable General: Weakness Respiratory: Shortness of Breath Physical Examination Temp Pulse Resp BP Pulse Ox 97.9 F 78 15 124/72 95 05/27/24 08:00 05/27/24 09:57 05/27/24 08:00 05/27/24 09:57 05/27/24 08:00 General: Alert, In no apparent distress, Oriented x3 Respiratory: Clear to auscultation bilaterally, Diminished Cardiovascular: Edema Gastrointestinal: Normal bowel sounds, Soft and benign, Non-distended Musculoskeletal: No clubbing, No swelling, No contractures Laboratory Data (last 24 hrs) 05/26/24 05/26/24 05/26/24 23:30 23:30 23:30 WBC 7.20 Hgb 14.2 Hct 43.3 Plt Count 341 PT 11.6 INR 1.04 APTT 32.6 Sodium 139 Potassium 3.5 BUN 15 Creatinine 1.00 Glucose 167 H Magnesium 1.9 Total Bilirubin 0.3 AST 15 ALT 18 Alkaline Phosphatase 62 Lipase 19 - Problems (1) Abnormal CT scan of lung Current Visit: Yes Status: Acute Plan: Patient has an abnormal CT scan of the lung right lower lobe nodule most likely cancer form the patient she will need to follow-up with her doctors also sees an oncologist recommend a PET scan pulmonary function testing patient has got significant emphysematous changes high risk for biopsy (2) COPD exacerbation Current Visit: Yes Status: Acute Plan: I suspect patient has COPD exacerbation cannot emphysematous changes on the CT scan underlying cor pulmonale as well causing her swelling some prednisone recommend changing over to spironolactone DC IV Lasix condition is stable charge planning patient is very anxious about her her some BuSpar allergic to lorazepam discharge planning
[2024-05-27 12:28] VITALS: O2SAT 91
[2024-05-27] MEDS: BUSPIRONE HCL 5 MG TABLET PO SCH (12:52)
[2024-05-27] MEDS: predniSONE 20 MG TAB PO SCH (12:52)
[2024-05-27] MEDS: SPIRONOLACTONE 25 MG TABLET PO SCH (12:52)
[2024-05-27] MEDS: PANTOPRAZOLE 40MG TABLET PO SCH (13:28)
[2024-05-27] MEDS: ALPRAZOLAM 0.5 MG TABLET PO ONE (13:30)
[2024-05-27] MEDS: CODEINE 30MG/APAP 300MG TAB PO PRN (13:44)
--- NOTE | 2024-05-27 14:33 | P.DS ---
Admission Date: 05/27/24 Discharge Date: 05/27/24 Disposition: ROUTINE DISCHARGE Discharge Condition: FAIR Reason for Admission: COPD exacerbation, dyspnea - Problems (1) Acute diastolic heart failure with preserved ejection fraction Current Visit: Yes Status: Acute (2) Acute and chronic respiratory failure with hypoxia Current Visit: Yes Status: Acute (3) Hypertensive emergency Current Visit: Yes Status: Acute (4) Atrial fibrillation Current Visit: Yes Status: Acute Qualifiers: Atrial fibrillation type: unspecified chronic Qualified Code(s): I48.20 - Chronic atrial fibrillation, unspecified; I48.2 - Chronic atrial fibrillation (5) COPD exacerbation Current Visit: Yes Status: Acute (6) Pulmonary nodule Current Visit: Yes Status: Acute Brief History of Present Illness: 64-year-old woman with a past medical history significant for COPD (not on home oxygen), CHF, HTN, HDL, and atrial fibrillation presented to the emergency room complaining of dyspnea x 2 days. Patient stated that she resides in [facility], but came to this area to pickle cutter her son tomorrow. She stated she noticed bilateral lower extremity edema that got worse. Patient stated she is a former smoker, quit about 7 years ago. CTA chest demonstrated emphysema and right lower lobe spiculated nodule, no PE. Patient was hospitalized for further management. Hospital Course: Patient was treated with IV steroid, scheduled bronchodilators. She was also treated with IV Lasix for acute CHF. Patient was initially requiring 5 L of oxygen by nasal cannula. Her respiratory status improved rapidly, quicker than expected, oxygen was weaned down to 2 L which is her baseline. Patient's initial blood pressure was severely elevated with systolic in the 200 likely contributed to acute CHF. Patient was seen and evaluated by pulmonary Dr. Buenrostro and cardiology Dr. Hernandez. Echocardiogram was ordered. Patient's lower extremity swelling resolved. Blood pressure significantly improved. Dr. Buenrostro recommended Aldactone and follow-up for further evaluation of the right lower lobe spiculated lung nodule which is highly suspicious for malignancy. Overall patient has clinically improved and deemed stable for discharge. Vital Signs/Physical Exam: Temp Pulse Resp BP Pulse Ox 97.9 F 85 19 130/83 97 05/27/24 12:00 05/27/24 12:52 05/27/24 13:44 05/27/24 12:52 05/27/24 13:44 General: Alert, In no apparent distress, Oriented x3, Obese HEENT: Mucous membr. moist/pink Neck: Supple, JVD not distended Respiratory: Diminished (Otherwise clear.) Cardiovascular: No edema, Normal S1 S2, Irregular heart rate/rhythm Gastrointestinal: Normal bowel sounds, Soft and benign, Non-distended, No tenderness Musculoskeletal: No swelling Integumentary: No rashes Neurological: Normal strength at 5/5 x4 extr Laboratory Data at Discharge: WBC 7.20 thou/uL (4.3-10.9) 05/26/24 23:30 Hgb 14.2 g/dL (12.0-15.0) 05/26/24 23:30 Hct 43.3 % (36.0-45.0) 05/26/24 23:30 Plt Count 341 thou/uL (152-406) 05/26/24 23:30 PT 11.6 SECONDS (9.4-12.5) 05/26/24 23:30 INR 1.04 05/26/24 23:30 APTT 32.6 SECONDS (24.3-36.9) 05/26/24 23:30 Sodium 139 mEq/L (136-145) 05/26/24 23:30 Potassium 3.5 mEq/L (3.5-5.1) 05/26/24 23:30 BUN 15 mg/dL (7-18) 05/26/24 23:30 Creatinine 1.00 mg/dL (0.55-1.02) 05/26/24 23:30 Glucose 167 mg/dL (74-106) H 05/26/24 23:30 Phosphorus 3.1 mg/dL (2.5-4.9) 05/27/24 05:45 Magnesium 2.0 mg/dL (1.6-2.4) 05/27/24 05:45 Total Bilirubin 0.3 mg/dL (0.2-1.0) 05/26/24 23:30 AST 15 U/L (15-37) 05/26/24 23:30 ALT 18 U/L (13-56) 05/26/24 23:30 Alkaline Phosphatase 62 U/L (45-117) 05/26/24 23:30 Lipase 19 U/L (13-75) 05/26/24 23:30 Home Medications: Acetaminophen with Codeine [Acetaminophen-Cod #4 Tablet] 1 tab PO BID 05/27/24 Budesonide/Glycopyr/Formoterol [Breztri Aerosphere Inhaler] 1 puff IH DAILY PRN 05/27/24 Buspirone HCl [Buspar*] 5 mg PO DAILY 05/27/24 Furosemide [Lasix] 40 mg PO DAILY #7 tab 05/27/24 Losartan Potassium 1 tab PO BID 05/27/24 Metoprolol Succinate 1 tab PO DAILY 05/27/24 Omeprazole [Prilosec] 1 cap PO DAILY 05/27/24 Pravastatin Sodium 1 tab PO DAILY 05/27/24 Spironolactone [Aldactone*] 25 mg PO BID #60 tab 05/27/24 hydrOXYzine HCL [Atarax*] 1 tab PO DAILY 05/27/24 predniSONE [Prednisone*] 20 mg PO BID #10 tab 05/27/24 New Medications: Spironolactone [Aldactone*] 25 mg PO BID #60 tab Furosemide [Lasix] 40 mg PO DAILY #7 tab predniSONE [Prednisone*] 20 mg PO BID #10 tab Diet: AHA Activity: Ad dion Followup: JAMESON BARBA [Primary Care Provider] - 1-2 Weeks Time spent managing pt's care (in minutes): 32
[2024-05-27 16:45] VITALS: BP 130/79; TEMP 98.5
[2024-05-28] MEDS ORDERED: BUSPIRONE HCL 5 MG TABLET PO SCH (09:00)
--- NOTE | 2024-05-28 12:22 | EKG ---
Test Date: 2024-05-27 Test Time: 00:16:58 Corporate Staff Accountant: AF MEASUREMENT RESULTS: Intervals: Rate: 110 IA: 158 QRSD: 70 QT: 340 QTc: 460 Mcgregor: P: 89 IA: 158 QRS: 18 T: 84 INTERPRETIVE STATEMENTS: Sinus tachycardia Right atrial enlargement Borderline ECG No previous ECG available for comparison Electronically Signed On 05-28-24 12:17:40 SENIOR CHEMICAL PROCESS ENGINEER by Ry Hernandez
--- NOTE | 2024-05-29 09:11 | ECHO ---
HEIGHT: 5 ft 10 in WEIGHT: 217 lb 15.889 oz DATE OF STUDY: 05/27/[address]: Amy Lockwood PA-C 2-DIMENSIONAL: YES M.MODE: YES DOPPLER: YES COLOR FLOW: YES TDS: NO PORTABLE: YES DEFINITY: NO BUBBLE STUDY: NO DIAGNOSIS: ATRIAL FIBRILLATION, DYSPNEA CARDIAC HISTORY: CATHERIZATION:YES SURGERY: NO PROSTHETIC VALVE: NO PACEMAKER: NO MEASUREMENTS (cm) DIASTOLIC (NORMALS) SYSTOLIC (NORMALS) IVSd 0.9 (0.6-1.2) LA Diam 2.0 (1.9-4.0) LVEF 60-65% LVIDd 4.2 (3.5-5.7) LVIDs 2.7 (2.0-3.5) %FS 35% LVPWd 1.0 (0.6-1.2) Ao Diam 2.4 (2.0-3.7) 2 DIMENSIONAL ASSESSMENT: RIGHT ATRIUM: NORMAL LEFT ATRIUM: NORMAL RIGHT VENTRICLE: NORMAL LEFT VENTRICLE: NORMAL TRICUSPID VALVE: NORMAL MITRAL VALVE: NORMAL PULMONIC VALVE: NORMAL AORTIC VALVE: TRACE AORTIC REGURGITATION PERICARDIAL EFFUSION: NONE AORTIC ROOT: NORMAL LEFT VENTRICULAR WALL MOTION: NORMAL. DOPPLER/COLOR FLOW: NORMAL. COMMENTS: 1. NORMAL LEFT VENTRICULAR SYSTOLIC FUNCTION. LEFT VENTRICULAR EJECTION FRACTION 60-65%. NORMAL WALL MOTION. 1. NORMAL DIASTOLIC FUNCTION. TECHNOLOGIST: KELSEY JASMINE
== END 2024-05-27 17:45 | disposition home or self-care (01) | DRG 291 ==
LOC: ER 23:12 → 2ND 05-27 03:45
PROVIDERS: ADMIT Internal Medicine; ATTEND Internal Medicine
PROC: 4A033R1 Measurement of Arterial Saturation, Peripheral, Percutaneous Approach (ICD-10-PCS; principal; 2024-05-27)
DX: I11.0 Hypertensive heart disease with heart failure (principal); I50.31 Acute diastolic (congestive) heart failure; J96.21 Acute and chronic respiratory failure with hypoxia; J44.1 Chronic obstructive pulmonary disease with (acute) exacerbation; I48.20 Chronic atrial fibrillation, unspecified; I16.1 Hypertensive emergency; I27.81 Cor pulmonale (chronic); F41.9 Anxiety disorder, unspecified; J43.9 Emphysema, unspecified; E78.5 Hyperlipidemia, unspecified; R91.8 Other nonspecific abnormal finding of lung field; Z98.51 Tubal ligation status; Z79.52 Long term (current) use of systemic steroids; Z90.49 Acquired absence of other specified parts of digestive tract; Z87.891 Personal history of nicotine dependence
CPT/HCPCS: 36415; 36600; 71045; 71275; 80048; 80076; 82550; 82805; 83605; 83690; 83735; 83880; 84100; 84443; 84484; 85025; 85379; 85610; 85730; 86140; 87040; 93005; 93306; 93970; 94010; 94640; 94760; 96374; 96375; 99285; J0360; J1650; J1940; J2405; J2919; J7512; J7613; J7644; Q9967